=== PATIENT | male | born 1980 | race Two or more races ===

== ENCOUNTER 2017-12-20 07:18 | Outpatient (CLI) | payer OTHER ==
[2018-01-06] MEDS ORDERED: RESTASIS1 EACH OP (15:01)
== END 2017-12-20 07:23 | disposition home or self-care (01) ==
LOC: SONOGRAMA 07:18
DX: R59.0 Localized enlarged lymph nodes (principal)

== ENCOUNTER 2018-01-09 08:55 | Outpatient (CLI) | payer OTHER ==
[~2018-01-09 08:55] MED LIST: RESTASIS1 EACH OP
== END 2018-01-09 12:02 | disposition home or self-care (01) ==
LOC: SONOGRAMA 08:55
DX: D21.21 Benign neoplasm of connective and other soft tissue of right lower limb, including hip (principal); D21.22 Benign neoplasm of connective and other soft tissue of left lower limb, including hip

== ENCOUNTER 2018-01-10 04:44 | Day surgery (SDC) | payer OTHER | END 2018-01-10 14:05 | disposition home or self-care (01) | LOC: CIR.AMB | DX: D17.1 Benign lipomatous neoplasm of skin and subcutaneous tissue of trunk (principal) ==